=== PATIENT | female | born 1935 | race Caucasian/White ===

== ENCOUNTER → 2016-03-25 | Outpatient (CLI) | payer OTHER, MEDICARE ==
[~2016-03-25] MED LIST: ALBU1NEB10 INH; ALBUAER2 INH; ALPR-411 PO; ASPCH81X PO; CALC500C70 PO; CARV6.252 PO; CHOL100010 PO; CIPR1TAB11 PO; COEN100C11 PO; LPT/40 PO; MULT-506 PO; NITR0.4S UT; OMEGCAP2 PO; PRLSR20 PO; TRAM-10 PO
--- NOTE | 2016-03-25 15:43 | DIAGNOSTIC IMAGING REPORT ---
MRI THE RIGHT KNEE NO CONTRAST CLINICAL HISTORY: Right knee pain COMPARISON STUDY: No previous studies for comparison. FINDINGS: The patient was imaged in the sagittal coronal and axial planes. There is a heterogeneous 31 mm area of marrow replacement involving the distal femoral metadiaphyseal junction, likely representing a chondral lesion or bone infarct. Conventional radiographic correlation is advocated. There is no cortical breakthrough or soft tissue component identified The quadriceps and patellar tendons appear intact. Anterior posterior crucial ligaments appear intact. The medial and lateral collateral ligaments appear intact. There is mild edema surrounding the distal iliotibial tract. There is a 22 mm cyst within the subcutaneous fat on the medial aspect of the knee superior to the joint line No meniscal tears are visualized. There are osteoarthritic changes involving the medial joint compartment cartilaginous thinning. IMPRESSION: 1. No evidence of cruciate or collateral ligament disruption 2. No evidence of meniscal tear 3. 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 Cartilaginous thinning involving the patella with minor subchondral cystic change 5. 22 mm cyst within the subcutaneous fat on the medial aspect in the superior to the joint line 6. 31 mm lesion with thin the metadiaphyseal junction of the distal femur. This likely are present a bone infarct or chondroid lesion. Correlate with patient's symptoms as well as with conventional radiographs. Electronically signed by: Schuyler Brower M.D. 03/25/2016 3:41 PM Dictated Date/Time: 03/25/2016 3:30 PM
== END | disposition home or self-care (01) ==
LOC: C.MRIBC 14:13
PROVIDERS: ATTEND Orthopaedic Surgery
DX: M25.561 Pain in right knee (principal)